=== PATIENT | female | born 1950 | race Hispanic/Latino ===

== ENCOUNTER 2020-11-12 19:55 | Emergency (ER) | payer MEDICARE ==
[2020-11-12 21:30] LABS: Absolute Lymphocytes (CBC) 0.8 K/uL (0.7-4.9); Basophils % 0.4 % (0-1.3); Hematocrit 38.4 % (36.0-45.0); Lymphocytes % 7.9 % (15.3-44.8); MPV 8.5 fL (7.6-11.3); RBC Red Blood Cell Count 4.74 M/uL (3.86-4.86)
[2020-11-12] MEDS ORDERED: NA CHLORIDE 0.9% 500 ML ONE (21:46)
[2020-11-12] MEDS ORDERED: MORPHINE 4 MG/ML SYR ONE (21:47)
[2020-11-12] MEDS ORDERED: ONDANSETRON 4 MG/2 ML VIAL ONE (21:48)
[2020-11-12 22:01] LABS: ALT/SGPT 18 U/L (12-78); AST/SGOT 13 U/L (15-37); Albumin 3.8 g/dL (3.4-5.0); Alkaline Phosphatase 96 U/L (45-117); BUN Blood Urea Nitrogen 21 mg/dL (7-18); Bicarbonate 28 mmol/L (21-32); Bilirubin Direct < 0.1 mg/dL (0-0.2); Bilirubin Total 0.2 mg/dL (0.2-1.0); Glucose Level 172 mg/dL (74-106); Lipase 56 U/L (73-393); Potassium 3.3 mmol/L (3.5-5.1); Sodium Level 143 mmol/L (136-145)
--- NOTE | 2020-11-12 22:22 | RAD REPORT ---
EXAM DESCRIPTION: CT - Stone Protocol - 11/12/2020 9:58 pm CLINICAL HISTORY: Abdominal pain. COMPARISON: None. TECHNIQUE: Computed axial tomography of the abdomen pelvis was obtained without oral or IV contrast. Lack of IV and oral contrast limits evaluation of solid organs, bowel, and vessels. Coronal reformat demar images were obtained and reviewed. All CT scans are performed using dose optimization technique as appropriate and may include automated exposure control or mA/KV adjustment according to patient size. FINDINGS: Tiny bilateral renal calculi. Mild to moderate left hydronephrosis. 7 millimeter calculus proximal left ureter. Cholecystectomy A large hiatal hernia. The gastric body lies superior to the gastric fundus consistent with volvulus. No stranding within the adjacent fat noted. The liver, spleen, pancreas and adrenals appear grossly normal There is no evidence of diverticulitis. Bilateral hip arthroplasties. Cement has been placed into an old L3 vertebral body fracture IMPRESSION: 7 millimeter calculus proximal left ureter resulting in mild to moderate left hydronephr osis
[2020-11-12 23:07] LABS: Urine Blood 3+ (Negative); Urine Glucose 1+ (Negative); Urine Protein 1+ (Negative); Urine Specific Gravity >=1.030 (1.005-1.030); Urine pH 5.5 (5.0-7.0)
[2020-11-12 23:32] LABS: Urine Appearance Cloudy (Clear); Urine Bilirubin Negative (Negative); Urine Blood 3+ (Negative); Urine Color Yellow (Yellow); Urine Glucose Trace (Negative); Urine Microscopic Reflex ORDER UMIC; Urine Protein 1+ (Negative); Urine Specific Gravity >=1.030 (1.005-1.030); Urine Urobilinogen 0.2 mg/dL (0.2-1.0); Urine pH 5.5 (5.0-7.0)
--- NOTE | 2020-11-12 23:32 | ER ---
Nurse's Notes [facility] Name: Tammy Bruce Age: 70 yrs Sex: Female : 1950 Arrival Date: 11/12/2020 Time: 20:00 Bed 27 Private MD: Diagnosis: Ureterolithiasis, Left Presentation: 11/12 20:27 Chief complaint: Patient states: LLQ abdominal pain, burning that began this morning, lp1 reports seeing pink tinged urine; hx of kidney stone; Denies fever, vomiting, burning with urination. Coronavirus screen: At this time, the client does not indicate any symptoms associated with coronavirus-19. Ebola Screen: No symptoms or risks identified at this time. Initial Sepsis Screen: Does the patient meet any 2 criteria? No. Patient's initial sepsis screen is negative. Does the patient have a suspected source of infection? No. Patient's initial sepsis screen is negative. Risk Assessment: Do you want to hurt yourself or someone else? Patient reports no desire to harm self or others. Onset of symptoms was November 12, 2020. 20:27 Method Of Arrival: Wheelchair lp1 20:27 Acuity: CARL 3 lp1 Triage Assessment: 20:45 General: Appears uncomfortable, well groomed, well nourished. Pain: Complains of pain cc4 in abdomen c/o left flank pain radiating into lower left \\T\\ right quads of abdomen; reports h/o diverticulosis and kidney stones. Pain currently is 10 out of 10 on a pain scale. Pain began Reports pain of left flank/lower abd. started intermittently this am that worsened this pm. Respiratory: No deficits noted. Airway is patent. Injury Description: Denies any injury. 20:45 General: Behavior is cooperative, anxious. cc4 Historical: - Allergies: 20:29 SHELLFISH; lp1 20:29 IV contrast; lp1 20:29 Lisinopril; lp1 - Home Meds: 20:38 oxycodone Oral [Active]; lp1 - PMHx: 20:29 degenerative disc; lp1 20:38 Diverticulosis; Kidney stone; lp1 - PSHx: 20:29 Nerve stimulator; Appendectomy; Cholecystectomy; uterus removal; lp1 - Immunization history:: Adult Immunizations up to date. - Social history:: Smoking status: Patient denies any tobacco usage or history of. Screenin:39 Abuse screen: Denies threats or abuse. Denies injuries from another. Nutritional lp1 screening: No deficits noted. Tuberculosis screening: No symptoms or risk factors identified. 20:45 Fall Risk None identified. cc4 Assessment: 20:45 Derm: No deficits noted. cc4 Vital Signs: 20:27 BP 189 / 82; Pulse 88; Resp 18; Temp 99.2(O); Pulse Ox 96% on R/A; Weight 80.29 kg (R); lp1 Height 5 ft. 3 in. (160.02 cm); Pain 10/10; 20:45 BP 170 / 75; Pulse 90; Resp 22; Pulse Ox 99% on R/A; cc4 21:30 BP 180 / 61; Pulse 75; Resp 20; Pulse Ox 99% on R/A; cc4 11/13 00:05 BP 165 / 70; Pulse 78; Resp 20; Pulse Ox 98% on R/A; cc4 00:05 BP 186 / 86; Pulse 76; Resp 20; Temp 97.7(O); Pulse Ox 98% on R/A; cc4 11/12 20:27 Body Mass Index 31.35 (80.29 kg, 160.02 cm) lp1 ED Course: 11/12 20:00 Patient arrived in ED. bp1 20:28 Seb Grey MD is Attending Physician. 7 20:29 Triage completed. lp1 20:29 Arm band placed on. lp1 20:45 Patient has correct armband on for positive identification. hi low truck driver on. Pulse cc4 ox on. NIBP on. 20:45 No provider procedures requiring assistance completed. Inserted saline lock: 22 gauge cc4 in right wrist, using aseptic technique. 21:14 Melissa Friedman is Primary Nurse. cc4 21:36 Hepatic Function Sent. cc4 21:36 Lipase Sent. cc4 21:[address] In Process Unspecified. EDMS 23:19 Urine obtained. cc4 23:19 Urine collected:. cc4 23:30 Jose Garnett MD is Referral Physician. [facility] 11/13 00:05 IV discontinued, bleeding controlled, No redness/swelling at site. Pressure dressing cc4 applied. Administered Medications: 00:38 Discontinued: NS 0.9% 500 ml IV at bolus once cc4 11/12 21:30 Drug: NS 0.9% 500 ml Route: IV; Rate: bolus; Site: right wrist; 4 21:30 Drug: morphine 4 mg {Note: c/o left flank \\T\\ left abd. pain "10" on pain scale..} Route: cc4 IVP; Site: right wrist; 22:00 Follow up: Response: No adverse reaction; Marked relief of symptoms; Pain is decreased cc4 21:30 Drug: Zofran (Ondansetron) 4 mg Route: IVP; Site: right wrist; 4 22:00 Follow up: Response: No adverse reaction [facility] Outcome: 20:45 Condition: stable [facility] 23:31 Discharge ordered by . [facility] 11/13 00:35 Discharged to home via wheelchair, with family. [facility] Condition: improved Discharge instructions given to patient, family, Instructed on discharge instructions, follow up and referral plans. Demonstrated understanding of instructions, follow-up care, medications. 00:39 Patient left the ED. [facility] Signatures: Dispatcher [employer] EDMS Mounika Tiwari RN RN lp1 [facility] Seb Grey MD MD 7 Melissa Friedman [facility] Corrections: (The following items were deleted from the chart) 11/12 22:27 22:25 Injury Description: [place] [id number] 22:25 Injury Description: Denies any injury, [place] [id number] 11/13 00:37 00:31 Urine collected: [place] [id number]
--- NOTE | 2020-11-12 23:32 | EDPHYS ---
Physician Documentation [facility] Name: Tammy Bruce Age: 70 yrs Sex: Female : 1950 Arrival Date: 11/12/2020 Time: 20:00 Bed 27 Private MD: ED Physician Seb Grey HPI: 11/12 20:40 This 70 yrs old Female presents to ER via Wheelchair with complaints of mh7 Abdominal Burn, Possible Kidney Stone, Blood in Urine. 20:40 The patient presents with abdominal pain in the left lower quadrant. mh7 20:40 Onset: The symptoms/episode began/occurred this morning, today. The symptoms radiate to mh7 the left flank. Associated signs and symptoms: Pertinent positives: hematuria, nausea, Blood in urine, Pertinent negatives: anorexia, blood in stools, chest pain, constipation, diarrhea, dysuria, fever, headache, palpitations, shortness of breath, vaginal discharge, vomiting, vomiting blood. The symptoms are described as intermittent, vague, waxing/waning. Modifying factors: The symptoms are alleviated by nothing, the symptoms are aggravated by movement, touching the area. Severity of pain: At its worst the pain was moderate today, in the emergency department the pain is unchanged. Historical: - Allergies: 20:29 SHELLFISH; lp1 20:29 IV contrast; lp1 20:29 Lisinopril; lp1 - Home Meds: 20:38 oxycodone Oral [Active]; lp1 - PMHx: 20:29 degenerative disc; lp1 20:38 Diverticulosis; Kidney stone; lp1 - PSHx: 20:29 Nerve stimulator; Appendectomy; Cholecystectomy; uterus removal; lp1 - Immunization history:: Adult Immunizations up to date. - Social history:: Smoking status: Patient denies any tobacco usage or history of. ROS: 20:40 Constitutional: Negative for fever, chills, and weight loss, Eyes: Negative for injury, mh7 pain, redness, and discharge, ENT: Negative for injury, pain, and discharge, Neck: Negative for injury, pain, and swelling, Cardiovascular: Negative for chest pain, palpitations, and edema, Respiratory: Negative for shortness of breath, cough, wheezing, and pleuritic chest pain, MS/Extremity: Negative for injury and deformity, Skin: Negative for injury, rash, and discoloration, Neuro: Negative for headache, weakness, numbness, tingling, and seizure, Psych: Negative for depression, anxiety, suicide ideation, homicidal ideation, and hallucinations, Allergy/Immunology: Negative for hives, rash, and allergies, Endocrine: Negative for neck swelling, polydipsia, polyuria, polyphagia, and marked weight changes, Hematologic/Lymphatic: Negative for swollen nodes, abnormal bleeding, and unusual bruising. Exam: 20:40 Constitutional: This is a well developed, well nourished patient who is awake, alert, mh7 and in no acute distress. Head/Face: Normocephalic, atraumatic. Eyes: Pupils equal round and reactive to light, extra-ocular motions intact. Lids and lashes normal. Conjunctiva and sclera are non-icteric and not injected. Cornea within normal limits. Periorbital areas with no swelling, redness, or edema. Neck: Trachea midline, no thyromegaly or masses palpated, and no cervical lymphadenopathy. Supple, full range of motion without nuchal rigidity, or vertebral point tenderness. No Meningismus. Chest/axilla: Normal chest wall appearance and motion. Nontender with no deformity. No lesions are appreciated. Cardiovascular: Regular rate and rhythm with a normal S1 and S2. No gallops, murmurs, or rubs. Normal PMI, no JVD. No pulse deficits. Respiratory: Lungs have equal breath sounds bilaterally, clear to auscultation and percussion. No rales, rhonchi or wheezes noted. No increased work of breathing, no retractions or nasal flaring. 20:40 Skin: Warm, dry with normal turgor. Normal color with no rashes, no lesions, and no evidence of cellulitis. MS/ Extremity: Pulses equal, no cyanosis. Neurovascular intact. Full, normal range of motion. Neuro: Awake and alert, GCS 15, oriented to person, place, time, and situation. Cranial nerves II-XII grossly intact. Motor strength 5/5 in all extremities. Sensory grossly intact. Cerebellar exam normal. Normal gait. Psych: Awake, alert, with orientation to person, place and time. Behavior, mood, and affect are within normal limits. 20:40 Abdomen/GI: Inspection: abdomen appears normal, Bowel sounds: normal, in all quadrants, Palpation: mild abdominal tenderness, in the left lower quadrant, mass, is not appreciated, rebound tenderness, is not appreciated, voluntary guarding, is not appreciated, involuntary guarding, is not appreciated, no appreciated organomegaly, Rectal exam: the exam is deferred, because of patient request, Indicators: McBurney's point is not tender, Eddy's sign is negative, Rovsing's sign is negative, Obturator sign is negative, Psoas sign is negative, Liver: no appreciated palpable abnormalities, Hernia: not appreciated. 20:40 Back: normal spinal alignment noted, CVA tenderness, that is mild, is noted on the left, vertebral tenderness, is not appreciated, muscle spasm, is not present. Vital Signs: 20:27 BP 189 / 82; Pulse 88; Resp 18; Temp 99.2(O); Pulse Ox 96% on R/A; Weight 80.29 kg (R); lp1 Height 5 ft. 3 in. (160.02 cm); Pain 10/10; 20:45 BP 170 / 75; Pulse 90; Resp 22; Pulse Ox 99% on R/A; cc4 21:30 BP 180 / 61; Pulse 75; Resp 20; Pulse Ox 99% on R/A; cc4 11/13 00:05 BP 165 / 70; Pulse 78; Resp 20; Pulse Ox 98% on R/A; cc4 00:05 BP 186 / 86; Pulse 76; Resp 20; Temp 97.7(O); Pulse Ox 98% on R/A; cc4 11/12 20:27 Body Mass Index 31.35 (80.29 kg, 160.02 cm) lp1 MDM: 11/12 23:29 Differential diagnosis: bowel obstruction, diverticulitis, non-specific abd pain, mh7 Pyelonephritis, Ureterolithiasis, urinary tract infection. Data reviewed: vital signs, nurses notes, lab test result(s), CBC, electrolytes, urinalysis, radiologic studies, CT scan. Data interpreted: Pulse oximetry: on room air is 99 %. Interpretation: normal. Counseling: I had a detailed discussion with the patient and/or guardian regarding: the historical points, exam findings, and any diagnostic results supporting the discharge/admit diagnosis, the presence of at least one elevated blood pressure reading (>120/80) during this emergency department visit, lab results, radiology results, the need for outpatient follow up, a urologist. Response to treatment: the patient's symptoms have resolved after treatment, the patient's blood pressure is in an acceptable range, mental status has returned to baseline, the patient no longer shows bradycardia, the patient is not short of breath, the patient is not tachycardic, the patient's pain is gone, the patient's temperature has normalized, the patient is now symptom free, patient is well hydrated. 23:31 Patient medically screened. [facility] 11/12 21:20 Order name: CBC with Diff; Complete Time: 21:43 [facility] 11/12 21:20 Order name: Hepatic Function; Complete Time: 22:35 4 11/12 21:20 Order name: Lipase; Complete Time: 22:35 4 11/12 21:20 Order name: Basic Metabolic Panel; Complete Time: 22:35 4 11/12 23:07 Order name: Urine Dipstick-Ancillary; Complete Time: 23:19 [facility] 11/12 21:20 Order name: Stone Protocol CT; Complete Time: 22:35 4 11/12 21:20 Order name: IV Saline Lock; Complete Time: 21:35 cc4 11/12 21:20 Order name: Labs collected and sent; Complete Time: 21:36 4 11/12 23:32 Order name: Urinalysis; Complete Time: 00:11 [facility] 11/12 23:33 Order name: Urine Microscopic Only; Complete Time: 00:11 [facility] 11/12 21:20 Order name: Urine Dipstick-Ancillary (obtain specimen) cc4 Administered Medications: 11/13 00:38 Discontinued: NS 0.9% 500 ml IV at bolus once cc4 11/12 21:30 Drug: NS 0.9% 500 ml Route: IV; Rate: bolus; Site: right wrist; cc4 21:30 Drug: morphine 4 mg {Note: c/o left flank \\T\\ left abd. pain "10" on pain scale..} Route: cc4 IVP; Site: right wrist; 22:00 Follow up: Response: No adverse reaction; Marked relief of symptoms; Pain is decreased cc4 21:30 Drug: Zofran (Ondansetron) 4 mg Route: IVP; Site: right wrist; cc4 22:00 Follow up: Response: No adverse reaction cc4 Disposition Summary: 11/12/20 23:31 Discharge Ordered Location: Home [facility] Problem: an acute exacerbation [facility] Symptoms: have improved [facility] Condition: Stable [facility] Diagnosis - Ureterolithiasis, Left [facility] Followup: [facility] - With: Private Physician - When: 1 - 2 days - Reason: Worsening of condition, Recheck today's complaints, Continuance of care, Re-evaluation by your physician Followup: [facility] - With: Jose Garnett MD - When: 1 - 2 days - Reason: Worsening of condition, Recheck today's complaints Discharge Instructions: - Discharge Summary Sheet [facility] - Kidney Stones, [id number] [facility] Forms: - Medication Reconciliation Form [facility] - Thank You Letter [facility] - Antibiotic Education [facility] - Prescription Opioid Use [facility] Prescriptions: - Flomax 0.4 mg Oral capsule - take 1 capsule by ORAL route once daily 1/2 hour following the same meal each [facility] day; 10 capsule; Refills: 0, Product Selection Permitted - ondansetron 4 mg Oral tablet,disintegrating - place 1 tablet by TRANSLINGUAL route every 8 hours As needed; 10 tablet; [facility] Refills: 0, Product Selection Permitted Signatures: Dispatcher [employer] Mounika Arreola RN RN lp1 Seb Grey MD MD 7 Melissa Friedman cc4 Corrections: (The following items were deleted from the chart) 23:34 21:20 URINALYSIS+[email or web address].BRZ ordered. [facility] EDMS
[2020-11-12 23:57] LABS: Urine Bacteria <20 /HPF (<20); Urine RBC >50 /HPF (NONE SEEN); Urine Urothelial Cells <5 /HPF (NONE SEEN)
[2020-11-13 01:14] VITALS: BP 186/86; TEMP 97.7; O2SAT 98
== END 2020-11-13 00:39 | disposition home or self-care (01) ==
LOC: ER 19:55
DX: N20.1 Calculus of ureter (principal); Z88.8 Allergy status to other drugs, medicaments and biological substances; Z91.013 Allergy to seafood; Z91.041 Radiographic dye allergy status
CPT/HCPCS: 85025; 80048; 36415; 80076; 83690; 76377; 74176; 96375; 96374; 99284; J7040; J2405; 81003; 81015